=== PATIENT | male | born 1950 | race Caucasian/White ===

== ENCOUNTER → 2019-01-08 15:32 | Outpatient (CLI) | payer MEDICARE, SELFPAY ==
--- NOTE | 2019-01-08 | DI.RAD.S_ITS ---
PROCEDURE: XR HIP W PEL IF DONE RT 2V INDICATIONS: Unspecified osteoarthritis, TECHNIQUE: AP pelvis with lateral view(s) of the right hip(s). COMPARISON: None. FINDINGS: Bones: No fractures or dislocations. Pelvic ring appears intact. No suspicious bony lesions. Lower lumbar spondylosis and bilateral moderate hip joint degeneration. Soft tissues: The visualized bowel gas pattern is normal. Presumed prostate calcifications, nonspecific IMPRESSION: Moderate bilateral hip joint degeneration. Lower lumbar spondylosis. Dictated by: Atul Ayala M.D. on 01/08/2019 at 16:12 Approved by: Atul Ayala M.D. on 01/08/2019 at 16:16
== END ==
PROVIDERS: PCP Internal Medicine; Visit Provider Internal Medicine
DX: M16.0 Bilateral primary osteoarthritis of hip (principal); M47.816 Spondylosis without myelopathy or radiculopathy, lumbar region
CPT/HCPCS: 73502

== ENCOUNTER → 2019-10-31 10:40 | Outpatient (CLI) | payer MEDICARE, SELFPAY ==
--- NOTE | 2019-10-31 | DI.RAD.S_ITS ---
PROCEDURE: XR CHEST 2V INDICATIONS: DYSPNEA TECHNIQUE: 2 views of the chest were acquired. COMPARISON: [facility], CHEST 2 VIEW, 12/15/2015, 15:14. [facility], CHEST 2 VIEW, 08/29/2017, 10:48. FINDINGS: Surgical changes and devices: None. Lungs and pleura: Lungs are clear. No pleural effusions or pneumothorax. Mediastinum: Mediastinal contours are normal. Heart size is normal. Bones and chest wall: No suspicious bony abnormalities. Soft tissues appear unremarkable. IMPRESSION: 1. No acute cardiopulmonary disease. Dictated by: Newton Borja M.D. on 10/31/2019 at 10:18 Approved by: Newton Borja M.D. on 10/31/2019 at 10:27
== END ==
PROVIDERS: PCP Internal Medicine; Referring Provider Internal Medicine; Visit Provider Internal Medicine
DX: R06.00 Dyspnea, unspecified (principal)
CPT/HCPCS: 71046

== ENCOUNTER 2019-10-31 13:40 | Emergency (ER) | payer MEDICARE, SELFPAY ==
[2019-10-31] VITALS (13 sets, daily range): BP systolic 137–180; BP diastolic 61–88; PULSE 90–106; RESP 13–23; TEMP 37–37.5; O2SAT 98–100; BMI 24.3
--- NOTE | 2019-10-31 14:07 | ED_ITS ---
HPI - Weakness General Chief complaint: Weakness Stated complaint: low hemoglobin, sent by pcp Time Seen by Provider: 10/31/19 14:06 Source: patient Mode of arrival: Ambulatory Limitations: no limitations History of Present Illness HPI Narrative: 69M non smoker with noncontributory medical history presents at the request of his primary care provider due to generalized weakness for the past few weeks. He had seen her in the office and they braxton some outpatient labs and he was found to be anemic. He denies any history of transfusions or anemia. He denies any hematemesis or dark and tarry stools. He denies any blood in his urine. He states that he is increasingly fatigued and short of breath with any exertion. Complaint: generalized weakness Onset (ago): week(s) Duration: constant Location: generalized Migration: none Severity: moderate Relieving factors: none Exacerbating factors: none Associated symptoms: shortness of breath Related Data Home Medications Medication Instructions Recorded Confirmed bupropion HCl [Wellbutrin SR] 100 mg PO DAILY 10/31/19 10/31/19 eszopiclone [Lunesta] 1 mg PO BEDTIME 10/31/19 10/31/19 Allergies Allergy/AdvReac Type Severity Reaction Status Date / Time No Known Drug Allergies Allergy Verified 10/31/19 15:39 Review of Systems Constitutional Constitutional: Denies chills, Reports fatigue, Denies fever(s), Denies frequent falls, Denies lethargy and Reports weakness Eyes Eyes: Denies change in vision, Denies eye discharge, Denies irritation and Denies loss of vision ENT Ears, Nose, Mouth, and Throat: Denies change in voice, Denies dizziness, Denies neck pain, Denies sore throat and Denies throat swelling Cardiovascular Cardiovascular: Denies chest pain, Denies irregular heart rhythm, Denies lightheadedness, Denies palpitations, Reports dyspnea, Denies dyspnea on exertion and Denies orthopnea Respiratory Respiratory: Denies cough, Reports dyspnea, Denies dyspnea on exertion and Denies wheezing Gastrointestinal Gastrointestinal: Denies abdominal pain, Denies change in bowel habits, Denies diarrhea, Denies nausea and Denies vomiting Genitourinary Genitourinary: Denies hematuria, Denies flank pain, Denies urinary incontinence and Denies urinary urgency Musculoskeletal Musculoskeletal: Denies back pain, Denies muscle weakness, Denies neck pain, Denies numbness and Denies tingling Integumentary/Breasts Skin/Breast: Denies pruritus, Denies erythema, Denies rash and Denies wounds Neurologic Neurologic: Denies behavioral changes, Denies confusion, Denies dizziness, Denies frequent falls, Denies loss of vision, Denies numbness, Denies tingling and Reports weakness Psychiatric Psychiatric: Denies anxiety, Denies behavioral changes, Denies confusion, Denies depression, Denies homicidal ideation and Denies suicidal ideation Endocrine Endocrine: Reports fatigue, Denies flushing and Denies palpitations Hematologic/Lymphatic Hematologic/Lymphatic: Denies easy bruising Allergic/Immunologic Allergic/Immunologic: Denies urticaria, Denies throat swelling and Denies wheezing Patient History Medical History Insomnia (Acute) Surgical History Status post hernia repair Status post hernia repair Family History Father Depression Social History Smoking Status: Never smoker Smoking Status: Never smoker Exam Narrative Exam Narrative: GENERAL: [69] year old patient appears stated age. Well-n ourished, well-developed patient, in mild distress. HEAD: Atraumatic. Normocephalic. EYES: Pale conjunctiva Pupils equal round and reactive. Extraocular motions intact. No scleral icterus. No injection or drainage. ENT: Nose without bleeding, purulent drainage. Throat without erythema, tonsillar hypertrophy or exudate. Airway patent. NECK: Trachea midline. Non tender. No lymphadenopathy CARDIOVASCULAR: Regular rate and rhythm without murmurs, gallops, or rubs. RESPIRATORY: Clear to auscultation. Breath sounds equal bilaterally. No wheezes, rales, or rhonchi. GASTROINTESTINAL: Abdomen soft, non-tender, nondistended. RECTAL: No gross blood, very weakly heme-positive EXTREMITIES: No edema or joint tenderness. BACK: Nontender without deformity or crepitance. No flank tenderness. NEURO: AOx3. SKIN: No rash or erythema of visible areas Initial Vital Signs Initial Vital Signs: Vital Signs Temperature 98.8 F 10/31/19 13:58 Pulse Rate 91 H 10/31/19 13:58 Respiratory Rate 16 10/31/19 13:58 Blood Pressure 156/70 H 10/31/19 13:58 Pulse Oximetry 100 10/31/19 13:58 Course Course Course Narrative: Upon receipt of widespread abnormalities on patient's CBC a placed a call to on-call Hematology-Oncology. We sure the opinion that this profile is most consistent with CML. 2 units of packed red cells administered and patient feels much better. Oncology took down patient's contact information and encouraged him to speak with the office on Saturday morning with a likely appointment on Saturday Orders Ordered: ED Orders 10/31/19 14:08 EKG-12 Lead Stat 10/31/19 14:35 Complete Blood Count AUTO DIFF Stat Comprehensive Metabolic Panel Stat D Dimer Stat Fibrinogen Stat Lactate Dehydrogenase Stat Packed Cells Stat Partial Thromboplastin Time Stat Pathologist Review (for CBC) Stat Prothrombin Time INR Stat Type and Screen Stat 10/31/19 15:45 Urine Culture Stat Urine Microscopic Stat Vital Signs Vital signs: Vital Signs - 8 hr 10/31/19 13:58 10/31/19 14:40 10/31/19 15:30 Temperature 98.8 F Pulse Rate 91 H 90 95 H Respiratory Rate 16 18 16 Blood Pressure 156/70 H Blood Pressure [Left Arm] 140/64 137/61 Pulse Oximetry 100 98 99 10/31/19 16:42 10/31/19 16:49 10/31/19 17:04 Temperature 98.9 F 98.6 F Pulse Rate 96 H 98 H 96 H Respiratory Rate 13 23 18 Blood Pressure 139/71 142/70 H Blood Pressure [Left Arm] 139/71 Pulse Oximetry 99 10/31/19 17:47 10/31/19 17:55 10/31/19 18:10 Temperature 98.6 F 98.9 F 99.5 F Pulse Rate 100 H 104 H 106 H Respiratory Rate 20 20 20 Blood Pressure 154/72 H 167/79 H 172/82 H Blood Pressure [Left Arm] Pulse Oximetry 10/31/19 18:25 Temperature 99.3 F Pulse Rate Respiratory Rate Blood Pressure Blood Pressure [Left Arm] Pulse Oximetry MDM - Weakness Lab Data Result diagrams: 10/31/19 14:35 10/31/19 14:35 Labs: Lab Results 02/29/20 02/29/20 02/29/20 Range/Units 14:35 14:35 14:35 WBC 46.9 H* (4.5-11.0) X10^3/uL RBC 1.60 L (4.5-5.9) X10^6/uL Hgb 5.6 L* (13.5-17.5) g/dL Hct 17.0 L* (41-53) % MCV 106.4 H (80-100) fL MCH 35.1 H (26-34) PG MCHC 33.0 (30-36) % RDW 16.0 H (11.6-14.8) % Plt Count 48 L (150-400) X10^3/uL Neut % (Auto) Not Reportable Lymph % (Auto) Not Reportable [place] % (Auto) Not Reportable Eos % (Auto) Not Reportable Baso % (Auto) Not Reportable Lymph # (Auto) Not Reportable [place] # (Auto) Not Reportable Baso # (Auto) Not Reportable Total Counted 100 Seg Neutrophils % 42.0 (38-70) % Band Neutrophils % 10.0 H (3-7) % Lymphocytes % (Manual) 17.0 L (25-45) % Monocytes % (Manual) 6.0 (2-11) % Eosinophils % (Manual) 1.0 L (2-4) % Metamyelocytes % 13.0 H (-0) % Myelocytes % 9.0 H (-0) % Blast Cells % 2.0 H (-0) % Neutrophils # (Manual) 89333 H (4362-1295) /uL RBC Morphology Not Reportable Anisocytosis 1+ H Macrocytosis 1+ H PT 13.9 H (10.1-12.7) SECONDS INR 1.2 (0.9-1.3) APTT 30 (26.4-36.2) SECONDS Fibrinogen (211-428) mg/dL D-Dimer (<230) ng/mL Sodium (137-145) mmol/L Potassium (3.4-5.1) mmol/L Chloride (98-107) mmol/L Carbon Dioxide (22-32) mmol/L BUN (9-20) mg/dL Creatinine (0.66-1.25) mg/dL Estimated GFR (>60) mL/min BUN/Creatinine Ratio (6-22) Glucose (80-110) mg/dL Calcium (8.4-10.2) mg/dL Total Bilirubin (0.2-1.3) mg/dL AST (17-59) IU/L ALT (<50) IU/L Alkaline Phosphatase (38-126) U/L Lactate Dehydrogenase (313-618) U/L Total Protein (6.3-8.2) g/dL Albumin (3.5-5.0) g/dL Globulin (1.7-4.1) g/dL Albumin/Globulin Ratio (1.0-2.8) Urine RBC (0-5/HPF) Urine WBC (0-5/HPF) Urine Bacteria (None) Ur Culture Indicated? Blood Type O Positive Antibody Screen Negative Crossmatch See Detail 10/31/19 10/31/19 10/31/19 Range/Units 14:35 14:35 14:35 WBC (4.5-11.0) X10^3/uL RBC (4.5-5.9) X10^6/uL Hgb (13.5-17.5) g/dL Hct (41-53) % MCV (80-100) fL MCH (26-34) PG MCHC (30-36) % RDW (11.6-14.8) % Plt Count (150-400) X10^3/uL Neut % (Auto) Lymph % (Auto) [place] % (Auto) Eos % (Auto) Baso % (Auto) Lymph # (Auto) [place] # (Auto) Baso # (Auto) Total Counted Seg Neutrophils % (38-70) % Band Neutrophils % (3-7) % Lymphocytes % (Manual) (25-45) % Monocytes % (Manual) (2-11) % Eosinophils % (Manual) (2-4) % Metamyelocytes % (-0) % Myelocytes % (-0) % Blast Cells % (-0) % Neutrophils # (Manual) (8854-3754) /uL RBC Morphology Anisocytosis Macrocytosis PT (10.1-12.7) SECONDS INR (0.9-1.3) APTT (26.4-36.2) SECONDS Fibrinogen 233 (211-428) mg/dL D-Dimer 450 H (<230) ng/mL Sodium 139 (137-145) mmol/L Potassium 3.8 (3.4-5.1) mmol/L Chloride 106 (98-107) mmol/L Carbon Dioxide 24 (22-32) mmol/L BUN 18 (9-20) mg/dL Creatinine 0.90 (0.66-1.25) mg/dL Estimated GFR > 60.0 (>60) mL/min BUN/Creatinine Ratio 20.0 (6-22) Glucose 104 (80-110) mg/dL Calcium 9.0 (8.4-10.2) mg/dL Total Bilirubin 0.7 (0.2-1.3) mg/dL AST 21 (17-59) IU/L ALT 16 (<50) IU/L Alkaline Phosphatase 72 (38-126) U/L Lactate Dehydrogenase 708 H (313-618) U/L Total Protein 6.7 (6.3-8.2) g/dL Albumin 3.8 (3.5-5.0) g/dL Globulin 2.9 (1.7-4.1) g/dL Albumin/Globulin Ratio 1.3 (1.0-2.8) Urine RBC (0-5/HPF) Urine WBC (0-5/HPF) Urine Bacteria (None) Ur Culture Indicated? Blood Type Antibody Screen Crossmatch 10/31/19 Range/Units 15:45 WBC (4.5-11.0) X10^3/uL RBC (4.5-5.9) X10^6/uL Hgb (13.5-17.5) g/dL Hct (41-53) % MCV (80-100) fL MCH (26-34) PG MCHC (30-36) % RDW (11.6-14.8) % Plt Count (150-400) X10^3/uL Neut % (Auto) Lymph % (Auto) [place] % (Auto) Eos % (Auto) Baso % (Auto) Lymph # (Auto) [place] # (Auto) Baso # (Auto) Total Counted Seg Neutrophils % (38-70) % Band Neutrophils % (3-7) % Lymphocytes % (Manual) (25-45) % Monocytes % (Manual) (2-11) % Eosinophils % (Manual) (2-4) % Metamyelocytes % (-0) % Myelocytes % (-0) % Blast Cells % (-0) % Neutrophils # (Manual) (5545-8919) /uL RBC Morphology Anisocytosis Macrocytosis PT (10.1-12.7) SECONDS INR (0.9-1.3) APTT (26.4-36.2) SECONDS Fibrinogen (211-428) mg/dL D-Dimer (<230) ng/mL Sodium (137-145) mmol/L Potassium (3.4-5.1) mmol/L Chloride (98-107) mmol/L Carbon Dioxide (22-32) mmol/L BUN (9-20) mg/dL Creatinine (0.66-1.25) mg/dL Estimated GFR (>60) mL/min BUN/Creatinine Ratio (6-22) Glucose (80-110) mg/dL Calcium (8.4-10.2) mg/dL Total Bilirubin (0.2-1.3) mg/dL AST (17-59) IU/L ALT (<50) IU/L Alkaline Phosphatase (38-126) U/L Lactate Dehydrogenase (313-618) U/L Total Protein (6.3-8.2) g/dL Albumin (3.5-5.0) g/dL Globulin (1.7-4.1) g/dL Albumin/Globulin Ratio (1.0-2.8) Urine RBC None seen (0-5/HPF) Urine WBC 0-1/hpf (0-5/HPF) Urine Bacteria None seen (None) Ur Culture Indicated? Specimen cultured Blood Type Antibody Screen Crossmatch Urine Dip Bedside Urine Glucose 100 mg/dl Bedside Urine Bilirubin - Negative Bedside Urine Ketone - Negative Urine Specific [place] 1.015 Bedside Urine Occult Blood - Negative Bedside Urine pH 7.0 Bedside Urine Protein +/- 15 Bedside Urine Urobilinogen 1+ 2mg Bedside Urine Nitrite - Negative Bedside Urine Leukocytes +/- 15 Esterase Discharge Plan Departure Patient Disposition: Home Clinical Impression: CML (chronic myelocytic leukemia) Instructions: Chronic Myelocytic Leukemia Activity Restrictions/Additional Instructions: *You have been diagnosed with [ anemia and other atypical blood counts consistent with Chronic Myelocytic Anemia ] *What to do: *Follow up with Hematology/Oncology this week. I spoke with *Return to ER if you should have any new, worsening or concerning symptoms Prescriptions: No Action bupropion HCl [Wellbutrin SR] 100 mg Tablet Sustained-Release 12 Hr 100 mg PO DAILY RF: 0 eszopiclone [Lunesta] 1 mg Tablet 1 mg PO BEDTIME RF: 0 Referrals: Josi Sanchez MD [Physician] - Jacek Oropeza MD [Primary Care Provider] -
--- NOTE | 2019-10-31 14:42 | PC.NURSE ---
Denies black/ bloody stools. last colonoscopy 5 or moreyears ago per patient. Stool very slightly quac positive per Dr. Gong.
[2019-10-31 15:10] LABS: Mean Corpuscular Hemoglobin 35.1 PG (26-34); Mean Corpuscular Volume 106.4 fL (80-100); Platelet Count 48 X10^3/uL (150-400)
[2019-10-31 15:18] LABS: Add Manual Diff / Slide Review YES
[2019-10-31 15:19] LABS: Hemoglobin 5.6 g/dL (13.5-17.5); White Blood Cell Count 46.9 X10^3/uL (4.5-11.0)
[2019-10-31 15:29] LABS: INR 1.2 (0.9-1.3); Prothrombin Time 13.9 SECONDS (10.1-12.7)
[2019-10-31 15:30] LABS: Alanine Aminotransferase 16 IU/L (<50); Albumin 3.8 g/dL (3.5-5.0); Albumin Globulin Ratio 1.3 (1.0-2.8); Alkaline Phosphatase 72 U/L (38-126); Aspartate Aminotransferase 21 IU/L (17-59); Bilirubin Total 0.7 mg/dL (0.2-1.3); Blood Urea Nitrogen 18 mg/dL (9-20); Carbon Dioxide 24 mmol/L (22-32); Chloride 106 mmol/L (98-107); Estimated Glomerular Filt Rate > 60.0 mL/min (>60); Globulin 2.9 g/dL (1.7-4.1); Glucose 104 mg/dL (80-110); HEMOLYSIS < 15 (0-50); Potassium 3.8 mmol/L (3.4-5.1); Sodium 139 mmol/L (137-145); Total Protein 6.7 g/dL (6.3-8.2)
[2019-10-31 15:32] LABS: PTT Partial Thromboplastin Tim 30 SECONDS (26.4-36.2)
[2019-10-31 15:57] LABS: Bacteria Urine None Seen; RBC Urine None Seen (0-5/HPF)
[2019-10-31 16:24] LABS: Culture Indicated Urine Specimen Cultured; WBC Urine 0-1/HPF (0-5/HPF)
[2019-10-31 16:55] LABS: Neutrophils Absolute Manual 24388 /uL (3000-5900); Total Cells Counted 100
[2019-10-31 16:57] LABS: Anisocytosis 1+; Macrocytosis 1+
[2019-10-31 17:18] LABS: D Dimer 450 ng/mL (<230)
[2019-10-31 17:19] LABS: Lactate Dehydrogenase 708 U/L (313-618)
[2019-10-31 17:27] LABS: Fibrinogen 233 mg/dL (211-428)
--- NOTE | 2019-10-31 19:27 | PC.NURSE ---
Provider aware of htn. No new orders. Pt states he feels well. Denies shortness of breath. BS equally clear. No edema.
--- NOTE | 2019-11-03 09:23 | ONC.MSW ---
Description: New Referral Navigation T/C Activity: [facility] called and discussed this pt w/A[employer] OFFICER today. Dr. Sanchez states that this referral should have gone to [place], and that if there was an opening this Saturday (tomorrow), he would like to see pt for f/u, as he had consulted with the ER doctor when pt was seen in the ER on 10/31/19. [employer] OFFICER confirmed that we do have an urgent opening available. Called Dr. Oropeza's office and spoke with the clinical trial coordinator, requested that they send an urgent referral for pt, and with this we can get him scheduled. Called pt and discussed my role as navigator, confirmed that we have his referral, and confirmed the appt. time for tomorrow, 11/03 at 10:00am, 9:40am check-in time.
== END 2019-10-31 19:46 | disposition home or self-care (01) ==
PROVIDERS: Emergency Provider Emergency Medicine; PCP Internal Medicine
DX: C92.10 Chronic myeloid leukemia, BCR/ABL-positive, not having achieved remission (principal); R06.00 Dyspnea, unspecified
CPT/HCPCS: 36415; 36430; 71046; 80053; 81003; 81015; 83615; 85025; 85379; 85384; 85610; 85730; 86850; 86900; 86901; 87086; 93005; 99285; P9016

== ENCOUNTER → 2019-11-04 10:13 | Oncology outpatient (ONC) | payer MEDICARE, SELFPAY ==
[2019-11-04 10:43] VITALS: BP 129/60; PULSE 85; RESP 18; TEMP 36.8; O2SAT 96
--- NOTE | 2019-11-04 11:22 | ONC.CONS ---
History of Present Illness - Data of Consult Primary Care Provider: Jacek Oropeza MD - Consult Narrative Narrative: Benjamin Saldana is a 69 year old male, referred for oncology evaluation. He has been always very healthy and active person. Recently, he has found him himself getting weaker and dyspneic with mild exertion. He would feel short of breath and get palpitations with going up stairs. He otherwise feels well. Specifically, he denies subjective fever, chills, night sweats, anorexia or major weight loss other than a few lb. He went to his primary care provider, Dr. Oropeza, and had a CBC (10/30/2019) which showed WBC 09456 with left shift including neutrophils 45%, bands 11%, metamyelocytes 7%, myelocytes 8%, blasts 6%, hemoglobin 5.9, hematocrit 16.6%. He was called the next day and was sent to [facility] ER, where labs were repeated, WBC 46.9, similar differential although blasts 2%, hemoglobin 5.6, hematocrit 17%, platelet count 57075 (10/31/2019). He was given 2 units PRBC transfusion and has felt better. LDH was elevated at 708. LFTs normal, creatinine 0.9. He comes today for further evaluation. 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 He is a former smoker (up to 1 pack per day intermittently x 20 years, quit around year 1999), drinks on average 2 alcoholic beverages a night. He does not have serious comorbid conditions. He denies history of coronary artery disease, stroke, diabetes or hypertension. He takes bupropion for chronic depression and Lunesta for insomnia. CC: Josi Sanchez MD Home Medications and Allergies Home Medications Medication Instructions Recorded Confirmed Type bupropion HCl [Wellbutrin SR] 100 mg PO DAILY 10/31/19 11/04/19 History eszopiclone [Lunesta] 3 mg PO BEDTIME 10/31/19 11/04/19 History sildenafil 50 mg PO DAILY PRN 11/04/19 11/04/19 History Allergies Allergy/AdvReac Type Severity Reaction Status Date / Time No Known Drug Allergies Allergy Verified 10/31/19 15:39 Medical History - Medical, Surgical, Family History Medical History: Medical History (Last Reviewed 10/31/19 @ 17:35 by Tommie Gong DO) Insomnia Surgical History: Surgical History (Last Reviewed 10/31/19 @ 17:35 by Tommie Gong DO) Status post hernia repair Status post hernia repair Family History: Family History (Last Reviewed 10/31/19 @ 17:35 by Tommie Gong DO) Father Depression - Social History Smoking Status: Never smoker Review of Systems - Patient Self-Reported Symptoms SR Constitution: Fatigue/Malaise Exam Vital signs: Vital Signs Temp Pulse Resp BP Pulse Ox 11/04/19 10:43 98.2 F 85 18 129/60 96 Intake and Output 11/03/19 11/04/19 11/04/19 23:59 07:59 15:59 Other: Weight 77.9 kg Patient Weight 11/04/19 23:59 Weight 77.9 kg - Constitutional positive no acute distress - Routine HEENT Exam Head: Present: normocephalic, atraumatic ENT: Present: mucous membranes moist - Routine Neck Exam Present: supple. Absent: lymphadenopathy - Routine Respiratory Exam Present: Clear to auscultation bilaterally - Routine Cardiovascular Exam Present: RRR - Routine Abdominal Exam Present: soft. Absent: tenderness Palpation/Percussion: Absent: hepatomegaly, splenomegaly - Routine Extremities Exam Absent: edema - Routine Neurological Exam Present: alert, oriented X3, CN II-XII intact - Routine Psychiatric Exam Present: normal affect, normal thought process Assessment and Plan (1) Leucocytosis Current visit: Yes Status: Chronic 69-year-old gentleman presenting with severe anemia, thrombocytopenia, leukocytosis, myeloid left shift. Overall, presentation is most consistent with chronic phase CML. We discussed this as the likely possibility. We discussed initial workup including quantitative bcr/ABL transcript level and a peripheral blood smear review. We discussed that if CML is diagnosed based on initial labs, bone marrow biopsy is recommended to rule out accelerated phase or blast phase. He would like to proceed. We discussed initial therapy with TKI agents. Plan: He will referred to [facility] tomorrow for initial labs including quantitative bcr/ABL level, peripheral smear review by hematopathologist, repeat CBC He will have follow-up with me 7-10 days from now and the plan to perform a bone marrow biopsy done.
== END ==
LOC: ONC 10:18
PROVIDERS: PCP Internal Medicine; Referring Provider Internal Medicine; Visit Provider Internal Medicine Hematology & Oncology
DX: D72.829 Elevated white blood cell count, unspecified (principal); D69.6 Thrombocytopenia, unspecified; D64.9 Anemia, unspecified; Z87.891 Personal history of nicotine dependence
CPT/HCPCS: 99205; 99215